=== PATIENT | male | born 1970 | race Native Hawaiian/Other Pacific Islander ===

== ENCOUNTER 2022-12-20 03:10 | Observation (INO) | payer OTHER ==
[~2022-12-20] VITALS: Ht 180.3 cm; Wt 75.0 kg
[2022-12-20 03:20] VITALS: BP 109/89; TEMP 98.6
[2022-12-20 03:43] LABS: PLATELET COUNT 194 K/uL (142-355)
[2022-12-20 04:01] LABS: POTASSIUM 3.3 mmol/L (3.6-5.2)
[2022-12-20 07:20] VITALS: BP 104/64; TEMP 98.4
[2022-12-20] MEDS ORDERED: SERT100T PO (10:25)
[2022-12-20] MEDS ORDERED: PANTOPRAZOLE 40MG TA PO (10:25)
[2022-12-20] MEDS ORDERED: MOVANTIK25 MG PO (10:26)
[2022-12-20] MEDS ORDERED: UROXATRAL10 MG PO (10:27)
[2022-12-20] MEDS ORDERED: TESTOST CYP200 MG/ML IM (10:28)
[2022-12-20] MEDS ORDERED: FLONASE AL50 MCG/ACT NAS (10:29)
[2022-12-20] MEDS ORDERED: [UNRECOGNIZED DRUG - CODE] (10:30)
[2022-12-20] MEDS ORDERED: METHADONE10 MG PO (10:30)
[2022-12-20 11:20] VITALS: BP 99/51; TEMP 97.7
[2022-12-20 16:00] VITALS: BP 93/57; TEMP 98.5
[2022-12-20 16:11] VITALS: BP 104/64; TEMP 98.4; Ht 180.3 cm; Wt 75.0 kg
[2022-12-20 20:00] VITALS: BP 106/49; TEMP 98.2
[2022-12-21] VITALS: BP 102/61; TEMP 98.4
[2022-12-21 04:00] VITALS: BP 100/636; TEMP 98.3
[2022-12-21 05:13] LABS: PLATELET COUNT 148 K/uL (142-355)
[2022-12-21 05:26] LABS: POTASSIUM 4.7 mmol/L (3.6-5.2)
[2022-12-21 08:00] VITALS: BP 132/73; TEMP 98.1
== END 2022-12-21 11:15 | disposition home or self-care (01) ==
LOC: ED 03:10 → MED/SURG 06:55
PROVIDERS: ADMIT Emergency Medicine; ATTEND Internal Medicine
DX: K52.89 Other specified noninfective gastroenteritis and colitis (principal); D72.828 Other elevated white blood cell count; R10.30 Lower abdominal pain, unspecified; R91.1 Solitary pulmonary nodule; Z79.899 Other long term (current) drug therapy
CPT/HCPCS: 36415; 80053; 80307; 81002; 82150; 83630; 83690; 83735; 85027; 87015; 87045; 87425; 87899; 96360; 96361; 96375; 99221; 99284; G0378; J1885; J3490; Q9963